=== PATIENT | female | born 1980 | race Caucasian/White ===

== ENCOUNTER 2017-12-12 11:53 | Emergency (ER) | payer OTHER, MEDICAID ==
[~2017-12-12] VITALS: Ht 165.1 cm; Wt 90.7 kg
[2017-12-12 12:01] VITALS: BP 154/89
[2017-12-12] MEDS ORDERED: KETOROLAC 60 MG/2 ML VIAL IM ONE (16:10)
[2017-12-12 16:49] VITALS: BP 154/89
== END 2017-12-12 16:49 | disposition home or self-care (01) ==
LOC: MED 11:53
DX: R33.9 Retention of urine, unspecified (principal); F17.200 Nicotine dependence, unspecified, uncomplicated; Z88.1 Allergy status to other antibiotic agents; Z88.8 Allergy status to other drugs, medicaments and biological substances
CPT/HCPCS: 96372; 99283; C1758; J1885

== ENCOUNTER 2018-11-13 11:16 | Emergency (ER) | payer MEDICAID, OTHER ==
[~2018-11-13] VITALS: Ht 165.1 cm; Wt 88.0 kg
--- NOTE | 2018-11-13 11:23 | NUR ---
PATIENT WHEELCHAIR ASSISTED TO BED 5 AT THIS TIME.
[2018-11-13 11:29] VITALS: BP 114/73
--- NOTE | 2018-11-13 11:39 | NUR ---
Note undone in EDM - 11/13/18 at 1342 by [email or web address] 38 Y F FROM [facility] C/O RIGHT ANKLE PAIN. PT CAN'T STATE WHEN IT STARTED. +PEDAL PULSES, -REDNESS, SLIGHT SWELLING, -ROM. PT STATES SHE BELIEVES SHE HAS MULTIPLE ISSUES THAT NEED TO BE DIAGNOSED. DENIES TRUAMA. BED IS DOWN, LOCKED, BED RAIL X 1, ERMD NOTIFIED. PMH- ANXIETY, OCD, SCHIZOPHRENIA, TUBAL LIGATION RX- PT STATES SHE HAS A LIST BUT CANT REMEMBER
--- NOTE | 2018-11-13 11:39 | NUR ---
38 Y F FROM [facility], [facility]1983 C/O LEFT ANKLE PAIN. PT CAN'T STATE WHEN IT STARTED. +PEDAL PULSES, -REDNESS, SLIGHT SWELLING, -ROM. PT STATES SHE BELIEVES SHE HAS MULTIPLE ISSUES THAT NEED TO BE DIAGNOSED. DENIES TRUAMA. BED IS DOWN, LOCKED, BED RAIL X 1, ERMD NOTIFIED. PMH- ANXIETY, OCD, SCHIZOPHRENIA, TUBAL LIGATION RX- PT STATES SHE HAS A LIST BUT CANT REMEMBER
[2018-11-13] MEDS ORDERED: diphenhydrAMINE 50 MG/ML VIAL IM ONE (13:55)
[2018-11-13] MEDS ORDERED: HALOPERIDOL IM 5 MG/ML VIAL IM ONE (13:55)
[2018-11-13 14:18] LABS: BARBITURATE, URINE NEGATIVE ng/ml (NEG <=200); BENZODIAZEPINE, URINE POSITIVE ng/mL (NEG <=200); CANNABINOID, URINE NEGATIVE ng/mL (NEG <=50); COCAINE, URINE NEGATIVE ng/mL (NEG <=300); OPIATE, URINE NEGATIVE ng/mL (NEG <=2000); PHENCYCLIDINE SCREEN,URINE NEGATIVE ng/mL (NEG <=25)
--- NOTE | 2018-11-13 14:18 | NUR ---
PT IS SITTING UP IN BED, VSS, [id number]. CONTINUES TO ASK FOR A CIGARRETTE. PT TOLD SHE IS NOT ALLOWED TO HAVE A CIGARRETTE.
--- NOTE | 2018-11-13 14:18 | NUR ---
ORDERED FOOD FOR PT PER VERBAL ORDER
[2018-11-13 15:25] VITALS: BP 114/86
--- NOTE | 2018-11-13 15:25 | NUR ---
Patient does not wish to proceed with medical care recommended by Dr Carey. Patient given information related to possible complications, up to and including , which could occur as a result of leaving hospital at this time. Patient verbalizes understanding of risks involved leaving against medical advice. Patient has signed AMA and Homeless patient waiver form. Patient refused for arm band to be removed. Patient given homeless pocket including wipes, hand produce service team member, and sandwich.
== END 2018-11-13 15:25 | disposition left against medical advice (07) ==
LOC: MED 11:16
DX: G89.29 Other chronic pain (principal); M25.572 Pain in left ankle and joints of left foot; F25.9 Schizoaffective disorder, unspecified; F41.9 Anxiety disorder, unspecified; F42.9 Obsessive-compulsive disorder, unspecified; Z88.2 Allergy status to sulfonamides; Z88.1 Allergy status to other antibiotic agents
CPT/HCPCS: 73610; 73630; 80305; 96372; 99284; J1200; J1630; Q0092